=== PATIENT | female | born 1945 | race Caucasian/White ===

== ENCOUNTER 2023-08-22 07:19 | Day surgery (SDC) | payer MEDICARE, OTHER ==
[2023-08-15 12:47] LABS: BILIRUBIN,URINE NEGATIVE (Neg); CLARITY,URINE CLEAR (Clear); COLOR,URINE YELLOW (Yellow); GLUCOSE, URINE NEGATIVE (Neg); KETONES,URINE NEGATIVE (Neg); LEUKOCYTE ESTERASE ,URINE TRACE (Neg); NITRITES, URINE NEGATIVE (Neg); OCCULT BLOOD,URINE TRACE-INTACT (Neg); PROTEIN,URINE NEGATIVE (Neg); UROBILINOGEN,URINE 0.2 E.U/dL (0.2-1.0)
[2023-08-15 12:50] LABS: BASOPHILS % (AUTO) 0.4 % (0-1); EOSINOPHILS # (AUTO) 0.1 X10'3 (0-0.9); EOSINOPHILS % (AUTO) 1.4 % (0-6); LYMPHOCYTES # (AUTO) 2.6 X10'3 (1.1-4.8); LYMPHOCYTES % (AUTO) 37.7 % (21-51); MEAN CORPUSCULAR HEMOGLOBIN 30.7 PG (27.0-31.0); MEAN CORPUSCULAR HGB CONC 33.5 g/dL (33.0-36.5); MEAN CORPUSCULAR VOLUME 91.5 FL (78-98); MONOCYTES # (AUTO) 0.5 X10'3 (0-0.9); MONOCYTES % (AUTO) 7.6 % (2-12); NEUTROPHILS # (AUTO) 3.6 X10'3 (1.8-7.7); NEUTROPHILS % (AUTO) 52.9 % (42-75); PRE OP HEMATOCRIT 40.1 % (35.0-45.0); PRE OP HEMOGLOBIN 13.4 g/dL (12.0-16.0); PRE OP PLATELET COUNT 318 X10'3 (140-440); PRE OP WHITE BLOOD COUNT 6.9 10'3 (4.8-10.8); RED BLOOD COUNT 4.38 X10'6 (4.20-5.60); RED CELL DISTRIBUTION WIDTH 14.6 % (11.5-14.5)
[2023-08-15 12:53] LABS: HYALINE CASTS 0-3 /LPF (NEGATIVE); MUCUS STRANDS FEW /LPF (Neg); SQUAMOUS EPITHELIAL CELL,UR FEW /LPF (FEW); UA COLLECTION TYPE CLN CATCH MIDSTREAM
[2023-08-15 12:54] LABS: BACTERIA,URINE NONE SEEN /HPF (Neg); WBC,URINE 0-4 /HPF (0-4)
[2023-08-15 12:58] LABS: PRE OP PROTIME 10.3 SECONDS (9.0-12.0)
[2023-08-15 13:09] LABS: ALKALINE PHOSPHATASE 90 IU/L (46-116); BLOOD UREA NITROGEN 18 MG/DL (7-18); BUN/CREATININE RATIO 17.3 (10.0-20.0); CHLORIDE 102 MMOL/L (99-107); CREATININE 1.04 MG/DL (0.40-0.90); PRE OP ALT 27 U/L (30-65); PRE OP ANION GAP 8 (8-16); PRE OP AST 20 U/L (10-37); PRE OP BILIRUB, TOTAL 0.5 MG/DL (0.0-1.0); PRE OP GLUCOSE 97 MG/DL (70-104); PRE OP POTASSIUM 3.7 MMOL/L (3.4-5.1); PRE OP SODIUM 138 MMOL/L (135-145); TOTAL CARBON DIOXIDE 28.3 MMOL/L (24-32); TOTAL PROTEIN 7.9 G/DL (6.4-8.2); eGFR 51 ML/MIN
[~2023-08-22] VITALS: Ht 154.9 cm; Wt 72.1 kg
[~2023-08-22 07:19] MED LIST: ASPI81TA52 PO; CELE200C PO; CHOL100012 PO; HYDR25TA4 PO; LEVO50TA8 PO; LORA10TA7 PO; OMEP40CA21 PO; POTA20PA40 PO; SIMV-42 PO; cefazolin 2gm/D5W 100mL 100 ML IV ONE; famotidine 20mg tablet PO ONE; ringers solution, lacted 1,000 ML IV SCH; tranexamic acid inj. 1,000 MG in normal saline IV soln 100ML IV ONE
[2023-08-22 07:30] VITALS: BP 159/70; PULSE 71; RESP 16; TEMP 97.5; O2SAT 97
--- NOTE | 2023-08-22 08:00 | NUR ---
TOTAL JOINT CHARTING> MD DOES NOT ORDER OINTMENT PRE-OP. PT COMPLETED 5 DAILY HIBICLENS SHOWERS AT HOME PRE-OP AND READ THE BOOKLET AND OTHER READING MATERIALS. CSM'S TO RIGHT UPPER EXT INTACT. RIGHT RADIAL PULSE STRONG. Addendum: 08/22/23 at 0902 by Maria Ines Noonan RN Amended: Links added.
[2023-08-22] MEDS ORDERED: methylene blue (5mg/ml) 50mg/10ml ampul IV ONE (09:06)
--- NOTE | 2023-08-22 11:40 | NUR ---
1115: DR BALES AND DR MUÑOZ AT THE BEDSIDE. SURGERY CANCELED R/T CARDIAC CLEARANCE NEEDED PRE-OP. DR BALES EXPLAINED AND ANSWERED ALL PT'S AND 'S QUESTIONS. MD OFFICE NOTIFIED BY DR BALES, OFFICE TO CALL PATIENT WITH APPOINTMENT WHEN SCHEDULED. 1140: IV DC'D WITH CANNULA INTACT AND DSG APPLIED. PATIENT DENIES ANY FURTHER QUESTIONS OR NEEDS. DRESSED AND WALKED TO CAR WITH PRESENT.
== END 2023-08-22 11:40 | disposition home or self-care (01) ==
LOC: UNDOADMIN 07:19 → PAS 07:19 → PAS IN 07:19 → EDSTATUS 10:30 → UNDODISIN 11:40 → PAS 11:40
PROVIDERS: ATTEND Specialist
DX: M19.011 Primary osteoarthritis, right shoulder (principal); Z53.8 Procedure and treatment not carried out for other reasons; E78.5 Hyperlipidemia, unspecified; I10 Essential (primary) hypertension; E03.9 Hypothyroidism, unspecified; Z79.899 Other long term (current) drug therapy; Z98.890 Other specified postprocedural states; Z88.6 Allergy status to analgesic agent; M19.90 Unspecified osteoarthritis, unspecified site; Z87.891 Personal history of nicotine dependence; Z79.01 Long term (current) use of anticoagulants
CPT/HCPCS: 36415; 71046; 80053; 81001; 82948; 84443; 85025; 85610; 85730; 86885; 86900; 86901; 87081; 87088; J0690; J3490; J7120; Q9968

== ENCOUNTER 2023-11-04 18:52 | Emergency (ER) | payer MEDICARE, OTHER ==
[~2023-11-04] VITALS: Ht 157.5 cm; Wt 69.9 kg
[~2023-11-04 18:52] MED LIST changes: +OMEP20TA43 PO; -OMEP40CA21 PO; +SIMV-343 PO; -SIMV-42 PO; -cefazolin 2gm/D5W 100mL 100 ML IV ONE; -famotidine 20mg tablet PO ONE; -ringers solution, lacted 1,000 ML IV SCH; -tranexamic acid inj. 1,000 MG in normal saline IV soln 100ML IV ONE
[2023-11-04 20:04] VITALS: TEMP 97.4
[2023-11-05 03:58] VITALS: BP 172/84; PULSE 78; RESP 16; O2SAT 97
== END 2023-11-05 03:56 | disposition home or self-care (01) ==
LOC: ER 18:52
DX: J06.9 Acute upper respiratory infection, unspecified (principal); Z20.822 Contact with and (suspected) exposure to COVID-19; R19.7 Diarrhea, unspecified; R53.1 Weakness; E78.00 Pure hypercholesterolemia, unspecified; I10 Essential (primary) hypertension; E03.9 Hypothyroidism, unspecified; Z88.5 Allergy status to narcotic agent; Z79.82 Long term (current) use of aspirin; Z79.2 Long term (current) use of antibiotics; Z79.899 Other long term (current) drug therapy
CPT/HCPCS: 36415; 71045; 87811; 93005; 99285